=== PATIENT | female | born 1975 | race Caucasian/White ===

== ENCOUNTER → 2016-07-11 | Outpatient (CLI) | payer MEDICARE, MEDICAID ==
--- NOTE | ~2016-07-11 | ECH ---
Transthoracic Echocardiography Report (TTE) Demographics Patient Name SARAH GARCIA Date of Study 07/11/2016 Patient Number [id number] Visit Number [id number] Date of 1975 Room Number Accession Number [id number] Gender Female Age 41 year(s) Referring Abhi Greene [employer] Deja Cerna [facility] Physician MD Gulshan Holder Physician Interpreting [facility] Josh [place] Sheet [employer]anger Physician MD Supervising Ordering Physician Gulshan Holder MD/P Nurse Stress [employer] Specialist Conclusions Summary Technically difficult exam to perform, images obtained are fair quality. The estimated left ventricular ejection fraction is 65-70%. No significant valvular abnormalities. Procedure Type of Study TTE procedure:Echo Complete SF. Procedure Date Date: 07/11/2016 Start: 01:00 PM Technical Quality: Fair due to poor acoustical window. Indications:Murmur and Tachycardia. Additional Indications:Novantrone exposure Appropriate Use Criteria: 9 Height: 67 inches Weight: 160 pounds BSA: 1.84 m Rhythm: NSR HR: 89 bpm BP: 98/57 mmHg M-Mode/2D Measurements LV Diastolic Dimension: 3.87 cm LV Systolic Dimension: 3.28 cm LV Septum Diastolic: 0.62 cm LV PW Diastolic: 0.63 cm AO Root Dimension: 2.73 cm LA Dimension: 2.61 cm RV Diastolic Dimension: 2.05 cm LVOT VTI: 16.5 cm Doppler Measurements AV Peak Velocity: 0.99 m/s MV Peak E-Wave: 0.63 m/s AV Peak Gradient: 3.92 mmHg MV Peak A-Wave: 0.62 m/s AV Mean Gradient: 2.43 mmHg MV E/A Ratio: 1.03 LVOT Peak Velocity: 0.88 m/s MV P1/2t: 58.6 msec MV Deceleration Time: 202 msec MV Area (PHT): 3.75 cm Findings Left Ventricle Normal left ventricle size and function. Diastolic assessment reveals normal relaxation. Right Ventricle Normal right ventricle structure and function. Left Atrium Normal left atrial size. Right Atrium Normal right atrial size. Mitral Valve Normal mitral valve structure and function. Trivial mitral regurgitation by color Doppler. Aortic Valve Normal aortic valve structure and function. Tricuspid Valve Normal tricuspid valve structure and function. Pulmonic Valve The pulmonic valve is not well visualized. Pericardial Effusion No evidence of pericardial effusion. Miscellaneous Visualized portions of the aortic root and ascending aorta appear normal in size. Pleural Effusion No evidence of pleural effusion. Contractility Score LV regional wall motion:(0-Non visualized 1-Normal 2-Hypokinesis 3-Akinesis 4-Dyskinesis 5-Aneurysm) Signature
== END | disposition home or self-care (01) ==
LOC: CARD 12:33
DX: R01.1 Cardiac murmur, unspecified (principal); R00.0 Tachycardia, unspecified; G35 Multiple sclerosis; Z92.21 Personal history of antineoplastic chemotherapy